=== PATIENT | male | born 1940 | race Caucasian/White ===

== ENCOUNTER → 2017-04-10 | Outpatient (CLI) | payer MEDICARE, OTHER ==
[~2017-04-10] MED LIST: ALDACTAZIDE PO; ALLOPURINOL300 MG PO; ASPIRIN PO; ASPIRIN81 MG; ASPIRIN81 MG PO; COLCHICINE PO; COMBIVENT U/D3 M2 INH; DIAZEPAM PO; INDOCIN SR75 MG; INDOMETHACIN75 MG PO; LORTAB 5/500 TA1 TA1 PO; METOPROLOL SUCC25 MG PO; MIRALAX17 GM PO; NON-ASPIRIN PA325 M1 PO; NORVASC10 MG PO; PRILOSEC PO; PRILOSEC20 MG PO; PROTONIX PO; SERTRALINE HCL50 M1 PO; SIMVASTATIN40 MG PO; TESSALON PERLE100 M1 PO; TYLOX 5/500 CAP1 CAP PO; VEGETABLE LAXATIVE; WAL-TUSSIN100 MG/5 M PO; WATER PILL; ZEGERID40 MG/PKT PO; ZESTRIL30 MG PO; ZESTRIL40 MG PO; ZIAC; ZITHROMAX500 MG PO; ZOCOR PO; ZOLOFT50 MG PO; ZYLOPRIM PO
--- NOTE | ~2017-04-10 | EKG ---
PATIENT: OTIS CARRASQUILLO UNIT #: [id number] Ventricular Rate: 55 BPM Atrial Rate: 55 BPM P-R Interval: 200 ms QRS Duration: 94 ms Q-T Interval: 436 ms QTC Calculation(Bezet): 417 ms P [place]: 55 degrees Calculated R [place]: 77 degrees Calculated T [place]: 93 degrees Diagnosis Line: Sinus bradycardia Diagnosis Line: Nonspecific T wave abnormality Diagnosis Line: Abnormal ECG Diagnosis Line: No previous ECGs available Diagnosis Line: Confirmed by AYAAN TROY MD ([id number]) on Diagnosis Line: 04/10/2017 3:05:54 PM INTERPRETING MD: SYDNI SALCIDO
== END | disposition home or self-care (01) ==
LOC: CEKG 14:40
DX: I10 Essential (primary) hypertension (principal); R00.1 Bradycardia, unspecified; R94.31 Abnormal electrocardiogram [ECG] [EKG]
CPT/HCPCS: 93005